=== PATIENT | female | born 1975 | race Two or more races ===

== ENCOUNTER 2020-11-07 05:35 | Day surgery (SDC) | payer OTHER ==
[2020-11-07] MEDS ORDERED: CARAFATE1 GM/10 ML PO (10:06)
[2020-11-07] MEDS ORDERED: NEXIUM 24HR20 M1 PO (10:06)
== END 2020-11-07 12:05 | disposition home or self-care (01) ==
LOC: AMB-ENDOS 05:35
PROVIDERS: ATTEND Surgery
DX: D13.1 Benign neoplasm of stomach (principal); K44.9 Diaphragmatic hernia without obstruction or gangrene; Z20.822 Contact with and (suspected) exposure to COVID-19